=== PATIENT | female | born 1940 | race Caucasian/White ===

== ENCOUNTER → 2018-10-20 | Outpatient (CLI) | payer MEDICARE ==
[~2018-10-20] MED LIST: ASPI-515 PO; CYCL5TAB PO; ESTR1TAB15 PO; FLUT9.9S NS; GABA300C10 PO; HYDR-3240 PO; HYDR-3245 PO; HYDR-3307 PO; HYDR12.517 PO; LIDOCAINE-MPF 1%, 5ML ONE; LISI1TAB3 PO; OMEP-110 PO
== END | disposition home or self-care (01) ==
LOC: RAD 13:05
PROVIDERS: ATTEND Neurological Surgery
DX: M54.42 Lumbago with sciatica, left side (principal)
CPT/HCPCS: 62267; 72131; 75989